=== PATIENT | male | born 1995 | race Asian ===

== ENCOUNTER 2020-09-10 12:34 | Emergency (ER) | payer BC ==
[~2020-09-10] VITALS: Ht 172.7 cm; Wt 87.1 kg
[2020-09-10 12:42] VITALS: BP 123/68; Ht 172.7 cm; Wt 87.1 kg
== END 2020-09-10 15:31 | disposition home or self-care (01) ==
LOC: ED 12:34
DX: S66.4 Injury of intrinsic muscle, fascia and tendon of thumb at wrist and hand level (principal); W45.8XXA Other foreign body or object entering through skin, initial encounter; Y93.89 Activity, other specified; Y92.89 Other specified places as the place of occurrence of the external cause; Y99.8 Other external cause status
CPT/HCPCS: 90715